=== PATIENT | male | born 1990 | race Caucasian/White ===

== ENCOUNTER 2017-03-14 20:18 | Observation (INO) | payer OTHER ==
[~2017-03-14 20:18] MED LIST: HYDROmorphone HCL 2 MG/ML VIAL IV PRN; MORPHINE SULFATE 4 MG/ML SYRG IV PRN; PROMETHAZINE HCL 12.5 MG in DEXTROSE 5 % IN WATER 50 ML IV PRN; RINGER'S SOLUTION,LACTATED 1,000 ML IV PRN; diphenhydrAMINE HCL 50 MG/ML VIAL IV PRN
[2017-03-14 20:49] LABS: Hematocrit 50.7 % (42.0-52.0); Hemoglobin 18.1 gm/dL (13.5-18.0); Mean Cell Volume 88.8 fl (78-100); Mean Corpuscular Hemoglobin 31.7 pg (27-31); Mean Corpuscular Hgb Conc 35.7 g/dl (32-36); Mean Platelet Volume 10.4 fl (6.0-9.5); Neutrophil # 15.3 K/mm3 (1.3-6.0); Neutrophil % 83.9 % (42-75.0); Platelet Count 246 K/mm3 (150-450); Red Blood Count 5.71 M/mm3 (4.7-6.0); White Blood Count 18.3 K/mm3 (4.0-10.5)
[2017-03-14 21:01] LABS: Albumin * 4.7 gm/dl (3.4-5.0); Anion Gap 13.2 mmol/L (6.8-13.8); BUN/Creatinine Ratio 10.5 (9.0-21.6); Bilirubin, Total 1.5 mg/dL (0.0-1.1); Ca. Corrected For Albumin 8.7 mg/dL (8.4-10.2); Calcium * 9.6 mg/dL (7.9-10.9); Carbon Dioxide 30.8 mmol/L (24-32.6); Total Protein 8.9 gm/dL (6.2-8.2)
--- NOTE | 2017-03-14 21:08 | ERNOTE ---
Abdominal HPI - Narrative Date of Service: 03/14/17 - General Chief Complaint: Abdominal Pain Time Seen by Provider: 03/14/17 20:51 Source: patient Exam Limitations: no limitations - Immun/Allergies/Home Medications Immunizatons: IMMUNIZATION HX Immunizations Up to Date Yes History of Influenza Vaccine No Hx Pneumococcal Vaccination No Allergies/Adverse Reactions: Allergies No Known Allergies Allergy (Unverified 03/14/17 20:28) Home Medications: HOME MEDICATIONS NK [No Home Medication] 03/14/17 [Last Taken Unknown] - History of Present Illness Narrative: This is a 27-year-old male who comes to the emergency department complaining of severe right lower quadrant abdominal pain. The patient states that the pain started last evening as a general diffuse pain in the abdomen. He was able to go to bed woke up today and it had localized to the right lower quadrant. This morning had a fever, nausea, vomiting no diarrhea no blood in his stool. Throughout the day the abdominal pain has gotten worse. He is now at the point where any bumps or any pressure even trying to sit up or take a deep breath causes severe pain. The patient denies ever having similar symptoms in the past. He does not have any surgeries that have been done on his abdomen. No family history of inflammatory bowel disease. He denies coughing chest pain. He has not eaten more than 24 hours because he is not hungry. Review of Systems - Review of Systems Constitutional: Present: See HPI, fever, fatigue, malaise EYE: Present: no symptoms reported ENT: Present: no symptoms reported Respiratory: Present: no symptoms reported Cardiology: Present: no symptoms reported Gastrointestinal/Abdominal: Present: See HPI, nausea, vomiting, abdominal pain Genitourinary: Present: no symptoms reported Musculoskeletal: Present: no symptoms reported Skin: Present: no symptoms reported Neurological: Present: no symptoms reported Endocrine: Present: no symptoms reported Hematologic/Lymphatic: Present: no symptoms reported Psych: Present: no symptoms reported All Other Systems: All systems neg except as marked - Patient's Past Medical History Patient History - Medical: No pertinent hx Patient History - Cardiac/Respiratory: Hypertension Patient History - Cancer: No Hx of Cancer Patient History - Surgical Procedures: Other Patient History - Other: None - Social History Living Situations: home Abuse History: No History of abuse Psych History: No pertinent hx Smoking Status: Never smoker Alcohol Use: occasionally Drug Use: none - Immunizations Immunizations Up to Date: Yes Hx Pneumococcal Vaccination: No History of Influenza Vaccine: No Physical Exam - Physical Exam General Appearance: Present: wd/wn, alert Head Exam: Present: normal inspection, no evidence of injury Eye Exam: Normal inspection: bilateral, PERRL: bilateral, EOMI: bilateral Ears, Nose, Throat: Present: normal ENT inspection, normal except - Neck: Present: normal inspection, nontender Respiratory: Present: no respiratory distress, normal breath sounds, no accessory muscle use, lungs clear Cardiovascular/Chest: Present: regular rate, rhythm, no murmur Gastrointestinal/Abdominal: Present: nondistended, tenderness, McBurney sign, Psoas sign, other - patient has significant right lower quadrant pain with guarding and rebound. Positive heel tap positive rales with positive psoas sign very mild pain in the right upper quadrant which refers to the right lower quadrant. No CVA tenderness.. Absent: abnormal bowel sounds, mass, hernia Rectal Exam: Present: deferred Back Exam: Present: normal inspection, normal range of motion, no CVA tenderness , no vertebral tenderness Extremity Exam: Present: normal inspection, non-tender, no edema Neurological Exam: Present: alert, oriented, normal mood/affect, no motor/ sensory deficits Skin Exam: Present: normal color, warm/dry Lymphatic Exam: Present: no adenopathy ED Progress - Results and Orders Patient's Lab Results:: I have reviewed the patient's lab results. - Vital Signs Patient's Vital Signs:: I have reviewed the patient's vital signs. Vital Signs: Vital Signs 03/14/17 20:28 Temperature 37.6 C H Pulse Rate 101 H Respiratory 16 Rate Blood Pressure 144/83 O2 Sat by Pulse 97 Oximetry - Progress/Reassessment Chief Complaint: Abdominal Pain Progress Note-Subjective: 03/14/17 21:05 I discussed the case with Dr. Schofield from surgery. The patient has an [place] score of 9 out of 10. This indicates an extremely high likelihood of appendicitis. Since this is a male the only other suspected etiology would be right sided diverticulitis. Very unlikely. After discussion with the surgeon we have elected to have him come in and we'll activate the operating room. The plan is to take the patient based on clinical presentation and physical exam. Plan - Plan Plan: Patient is going to be going to the operating room for laparoscopic appendectomy possible (possible other indicated procedures under Dr. schofield Departure - Departure Clinical Impression: Acute appendicitis Disposition: [facility] Condition: Fair
[2017-03-14] MEDS ORDERED: HYDROmorphone HCL 1 MG/ML DISP.SYRIN IV PRN (21:32)
--- NOTE | 2017-03-14 21:48 | HP ---
Chief Complaint - Chief Complaint Date of Service: 03/14/17 Time of Service: 21:38 Chief Complaint: abdominal pain History of Present Illness: Started having mid abdominal pain like he had to move his bowels at about 5 PM yesterday. Today the pain has intensified and moved to the RLQ. He has had some vomiting. Hurts to move or cough. - Patient's Past Medical History Patient History - Medical: No pertinent hx Patient History - Cardiac/Respiratory: Hypertension Patient History - Cancer: No Hx of Cancer Patient History - Surgical Procedures: Other - right shoulder surgery and wisdom teeth Patient History - Other: None - Family History Family History:: no untoward family reactions to anesthesia - Social History Living Situations: home Abuse History: No History of abuse Psych History: No pertinent hx Smoking Status: Never smoker Alcohol Use: occasionally Drug Use: none - Immunizations Immunizations Up to Date: Yes Hx Pneumococcal Vaccination: No History of Influenza Vaccine: No Review Of Systems (GEN) - Review of Systems Generalized/Overall Review: Present: No Symptoms Reported EENTM: Present: No Symptoms Reported Respiratory: Present: Other - hurts to breathe deeply. Absent: Cough, Shortness of Breath Cardiac: Present: No Symptoms Reported Abdominal: Present: Abdominal Pain, Other - see HPI Genitourinary: Present: No Symptoms Reported Musculoskeletal: Present: No Symptoms Reported Neurological: Present: No Symptoms Reported Skin: Present: No Symptoms Reported Immunizations: IMMUNIZATION HX Immunizations Up to Date Yes History of Influenza Vaccine No Hx Pneumococcal Vaccination No Allergies/Adverse Reactions: Allergies Allergy/AdvReac Type Severity Reaction Status Date / Time No Known Allergies Allergy Unverified 03/14/17 20:28 Home Medications: HOME MEDICATIONS NK [No Home Medication] 03/14/17 [Last Taken Unknown] Exam - Exam Vital Signs: Vital Signs - Last Taken Temp 37.6 C H 03/14/17 20:28 Pulse 101 H 03/14/17 20:28 Resp 16 03/14/17 20:28 BP 144/83 03/14/17 20:28 Pulse Ox 97 03/14/17 20:28 Constitutional: Present: Alert, Oriented x3, Cooperative, Mild distress ENT Exam: Present: other - malar flushing, coated tongue Eye Exam: bilateral eye: other - injected Neck: Present: full range of motion, normal inspection Back Exam: Present: normal inspection Respiratory: Present: lungs clear, normal breath sounds Cardiovascular/Chest: Present: normal peripheral pulses, regular rate, rhythm Abdomen: Present: rebound tenderness, other - maximal tenderness RLQ, referred pain from palpation LLQ, no bowel sounds /Rectal: Present: Exam deferred Extremity: Present: normal range of motion, normal inspection, no pedal edema, no calf tenderness Skin Exam: Present: other - malar flushing Neurologic: Present: seamless tube drawer II-XII nml as tested, normal cerebellar test, no motor/ sensory deficits, alert, normal mood/affect, oriented x 3 Appearance: Present: appropriate appearance, appropriate insight Eye contact: Present: cooperative, good eye contact, normal speech Thoughts: Present: normal thought pattern Diagnostic Studies: Abnormal Lab Results 03/14/17 03/14/17 Range/Units 20:40 20:40 WBC 18.3 H (4.0-10.5) K/mm3 Hgb 18.1 H (13.5-18.0) gm/dL MCH 31.7 H (27-31) pg MPV 10.4 H (6.0-9.5) fl Immature Gran % (Auto) 0.50 H (0.001-0.429) % Immature Gran # (Auto) 0.09 H (0.000-0.0310) K/mm3 Neutrophils % 83.9 H (42-75.0) % Lymphocytes % 8.5 L (20-51) % Neutrophils # 15.3 H (1.3-6.0) K/mm3 Monocytes # 1.3 H (0.0-1.0) k/mm3 Chloride 96 L (97-106) mmol/L Random Glucose 126 H (70-110) mg/dL Total Bilirubin 1.5 H (0.0-1.1) mg/dL Total Protein 8.9 H (6.2-8.2) gm/dL Amylase 155 H (25-115) U/L Lipase 825 H (73-393) U/L Laboratory Results WBC 18.3 K/mm3 (4.0-10.5) H 03/14/17 20:40 RBC 5.71 M/mm3 (4.7-6.0) 03/14/17 20:40 Hgb 18.1 gm/dL (13.5-18.0) H 03/14/17 20:40 Hct 50.7 % (42.0-52.0) 03/14/17 20:40 MCV 88.8 fl (78-100) 03/14/17 20:40 MCH 31.7 pg (27-31) H 03/14/17 20:40 MCHC 35.7 g/dl (32-36) 03/14/17 20:40 RDW 12.0 % (11.5-14.0) 03/14/17 20:40 Plt Count 246 K/mm3 (150-450) 03/14/17 20:40 MPV 10.4 fl (6.0-9.5) H 03/14/17 20:40 Immature Gran % (Auto) 0.50 % (0.001-0.429) H 03/14/17 20:40 Immature Gran # (Auto) 0.09 K/mm3 (0.000-0.0310) H 03/14/17 20:40 Neutrophils % 83.9 % (42-75.0) H 03/14/17 20:40 Lymphocytes % 8.5 % (20-51) L 03/14/17 20:40 Monocytes % 6.8 % (0.0-9) 03/14/17 20:40 Eosinophils % 0.1 % (0.0-3.0) 03/14/17 20:40 Basophils % 0.2 % (0.0-1.0) 03/14/17 20:40 Nucleated RBC % 0.0 k/mm3 (0-1) 03/14/17 20:40 Neutrophils # 15.3 K/mm3 (1.3-6.0) H 03/14/17 20:40 Lymphocytes # 1.6 k/mm3 (1.5-3.5) 03/14/17 20:40 Monocytes # 1.3 k/mm3 (0.0-1.0) H 03/14/17 20:40 Eosinophils # 0.0 k/mm3 (0.0-0.7) 03/14/17 20:40 Absolute Basophils 0.0 k/mm3 (0.0-0.1) 03/14/17 20:40 Sodium 136 mmol/L (132-142) 03/14/17 20:40 Plasma Sodium 136 mmol/L (130-142) 03/14/17 20:40 Potassium 4.0 mmol/L (3.4-4.6) 03/14/17 20:40 Chloride 96 mmol/L (97-106) L 03/14/17 20:40 Carbon Dioxide 30.8 mmol/L (24-32.6) 03/14/17 20:40 Anion Gap 13.2 mmol/L (6.8-13.8) 03/14/17 20:40 BUN 12 mg/dL (6-23) 03/14/17 20:40 Creatinine 1.14 mg/dL (0.4-1.4) 03/14/17 20:40 Est GFR (Non-Af Amer) 82 mL/min (60-130) 03/14/17 20:40 BUN/Creatinine Ratio 10.5 (9.0-21.6) 03/14/17 20:40 Random Glucose 126 mg/dL (70-110) H 03/14/17 20:40 Calcium 9.6 mg/dL (7.9-10.9) 03/14/17 20:40 Calcium Adj for Albumin 8.7 mg/dL (8.4-10.2) 03/14/17 20:40 Total Bilirubin 1.5 mg/dL (0.0-1.1) H 03/14/17 20:40 AST 15 U/L (0-48) 03/14/17 20:40 ALT 32 U/L (19-67) 03/14/17 20:40 Alkaline Phosphatase 80 U/L (50-170) 03/14/17 20:40 Total Protein 8.9 gm/dL (6.2-8.2) H 03/14/17 20:40 Albumin 4.7 gm/dl (3.4-5.0) 03/14/17 20:40 Amylase 155 U/L (25-115) H 03/14/17 20:40 Lipase 825 U/L (73-393) H 03/14/17 20:40 Assessment/Plan - Assessment/Plan (1) Acute appendicitis Assessment: Clinically he has acute appendicitis. Operation and risks/expected course explained with pictures. Questions answered and informed consent for appendectomy obtained. SCD's, chlorhexidine wipes, IV mefoxin pre-op Problem: Acute
[2017-03-14] MEDS ORDERED: CEFOXITIN SODIUM 2 GM in DEXTROSE 5 % IN WATER 100 ML IV ONE ×2 (22:00)
[2017-03-14] MEDS ORDERED: RINGER'S SOLUTION,LACTATED 1,000 ML IV PRN ×2 (22:16→23:43)
[2017-03-14 22:18] LABS: Urine Bilirubin Negative (NEGATIVE); Urine Ketone Negative (NEGATIVE); Urine Nitrite Negative (NEGATIVE); Urine Protein Negative (NEGATIVE); Urine Urobilinogen Normal (NORMAL); Urine pH 6.5 pH (5.0-7.0)
[2017-03-14 22:29] LABS: Urine Appearance Clear; Urine Bacteria None Seen; Urine Blood 5 /ul (NEGATIVE); Urine Color Yellow; Urine RBC 0-5 /hpf (0-5); Urine WBC None Seen /hpf (0-5)
[2017-03-14] MEDS ORDERED: RINGER'S SOLUTION,LACTATED 1,000 ML IV ONE ×2 (23:01→23:17)
[2017-03-14] MEDS ORDERED: BUPIVACAINE HCL/EPINEPHRINE 50 ML VIAL IJ ONE (23:01)
[2017-03-14] MEDS ORDERED: MUPIROCIN 22 APPL TUBE TP ONE (23:01)
[2017-03-14] MEDS ORDERED: MORPHINE SULFATE 4 MG/ML SYRG IV PRN (23:43)
[2017-03-14] MEDS ORDERED: oxyCODONE HCL/ACETAMINOPHEN 1 TAB TABLET PO PRN (23:43)
[2017-03-14] MEDS ORDERED: CEFOXITIN SODIUM 2 GM in DEXTROSE 5 % IN WATER 100 ML IV SCH ×2 (23:45)
[2017-03-14] MEDS ORDERED: PANTOPRAZOLE SODIUM 40 MG in NORMAL SALINE 100 ML IV SCH (23:45)
[2017-03-14] MEDS ORDERED: diphenhydrAMINE HCL 50 MG/ML VIAL IV PRN (23:46)
[2017-03-14] MEDS ORDERED: HYDROmorphone HCL 2 MG/ML VIAL IV PRN (23:46)
[2017-03-14] MEDS ORDERED: PROMETHAZINE HCL 12.5 MG in DEXTROSE 5 % IN WATER 50 ML IV PRN ×2 (23:46)
[2017-03-14] MEDS ORDERED: NALOXONE HCL 0.4 MG/ML VIAL IV PRN (23:46)
--- NOTE | 2017-03-15 00:07 | OR ---
Operative Report - Dictated Report Narrative: Date of operation 03/14/2017 Preoperative diagnosis: Acute appendicitis Postoperative diagnosis: Acute suppurative appendicitis Operation: Laparoscopic appendectomy Surgeon: PROMISE Dixon MD Anesthesia: Gen. zohreh Lance CRNA Indications for procedure: The patient is a 27-year-old male with a one-day history of abdominal to the right lower quadrant. He has an elevated white blood cell count and direct and rebound tenderness in the right lower quadrant. Findings: Acute appendicitis with localized peritonitis Narrative of procedure: The patient was identified preoperatively, and prior to the administration of anesthetic a multidisciplinary timeout was observed. The patient was placed supine, SCDs were applied, and 2 g of intravenous Mefoxin administered. General endotracheal anesthetic was administered. The patient's abdomen was prepped with Betadine solution, and a generous operating field outlined with 4 sterile towels. The remainder the patient was covered with a sterile disposable drape. A transverse infraumbilical skin incision was made, and dissection was carried along the umbilical stalk until the fascia of the linea alba was encountered. This was incised. The peritoneum was elevated and incised to allow entry into the abdomen under direct vision. A Hussan cannula was placed and the abdomen insufflated with CO2. The laparoscopic camera was introduced and the abdomen briefly explored. Those portions of the liver, gallbladder, stomach, and small intestine visualized appeared normal. There was a large amount of stool in the colon. The appendix was not immediately visible. Next under direct vision, 2 additional working ports were inserted through separate skin incisions, one in the suprapubic area one in the left lower quadrant. The apex of the cecum was grasped and retracted cephalad revealing the tip of an acutely inflamed appendix. The appendix was gradually bluntly dissected free from the lateral peritoneum and elevated. A laparoscopic DELFINA stapling device was then placed across the appendiceal base and majority of the mesoappendix which was then transected. The remainder of the mesoappendix was divided with an additional application of a DELFINA laparoscopic stapling device. It was seen to be hemostatic. The stump of the appendix appeared gas and liquid tight and hemostatic. The appendix was placed in an Endobag and parked in the right lower quadrant. The small working ports were then withdrawn under direct vision to ensure entry site hemostasis. The appendix was removed in conjunction with the Hussan cannula. The pneumoperitoneum was allowed to escape, and after receiving a correct sponge needle and instrument count attention was turned to closing the abdomen. The fascia and peritoneum at the umbilicus were approximated with interrupted sutures of #1 Vicryl. Skin incisions were approximated with interrupted vertical mattress sutures of 4-0 nylon. The operative sites were washed and dried. Dressings of Bactroban ointment and large Band-Aids were applied to the small port sites. The umbilical incision was dressed with Bactroban ointment, 2 x 2, large Band-Aid, and Medipore tape. The operative procedure was terminated at this point. There was no measurable blood loss. 0.5% Marcaine with epinephrine was used for local anesthetic infiltration. The appendix was submitted to pathology. The patient tolerated the anesthetic and procedure well without complication and was transferred to the recovery room awake, extubated, and in stable condition. Review and electronically signed
[2017-03-15] MEDS ORDERED: PANTOPRAZOLE SODIUM 40 MG in NORMAL SALINE 100 ML IV SCH ×2 (01:30→23:45)
[2017-03-15] MEDS: oxyCODONE HCL/ACETAMINOPHEN 1 TAB TABLET PO PRN ×3 (03:39→13:47)
[2017-03-15] MEDS: CEFOXITIN SODIUM 2 GM in DEXTROSE 5 % IN WATER 100 ML IV SCH ×4 (05:03→11:34)
[2017-03-15 14:14] VITALS: BP 123/55
--- NOTE | 2017-03-15 15:58 | DS ---
(1) Acute appendicitis Problem: Resolved Description of Stay: Had uncomplicated laparoscopic appendectomy for acute appendicitis with local peritonitis. Tolerated well. VS remained normal, able to tolerate po intake, and was up independently. Presenting pain resolved and incisional pain controlled on po Percocet. Dressings dry. SCD"s and ambulation fpr VTE prophylaxis and pre and post op IV Mefoxin. Home, instructions given. Rx Percocet. RTC 7-10 days Procedures Performed: see notes below - laparoscopic appendectomy Discharge Disposition: Home self care Disposition: Home self-care Condition: Good Discharge Activity: Activity as tolerated, No Lifting Discharge Diet: General/regular food Referrals: Paco Galvan DO [Primary Care Provider] - Problem Oriented Discharge Instructions to Patient/Family: Laparoscopic Appendectomy, Adult, Care After, [id number] Additional Patient Instructions (free text): RTC 7-10 days Complete Home Medications List: Complete Home Medication List: oxyCODONE HCL/ACETAMINOPHEN [Percocet 5 MG/325 MG] 2 tab PO Q4H PRN #30 tablet 03/15/17
== END 2017-03-15 17:32 | disposition home or self-care (01) ==
LOC: ER 20:18 → AMB 21:30 → MS 03-15 00:18
PROVIDERS: ADMIT Surgery; ATTEND Surgery
PROC: 0DTJ4ZZ Resection of Appendix, Percutaneous Endoscopic Approach (ICD-10-PCS; principal; 2017-03-14 22:10)
DX: K35.3 Acute appendicitis with localized peritonitis (principal); I10 Essential (primary) hypertension
CPT/HCPCS: 36415; 44970; 80053; 81001; 82150; 83690; 85025; 88304; 96365; 96366; 96367; 96374; 96375; 99285; G0378